=== PATIENT | male | born 1990 | race Caucasian/White ===

== ENCOUNTER 2022-03-22 16:40 | Emergency (ER) | payer MEDICARE, SELFPAY ==
[2022-03-22 17:09] VITALS: BP 177/92; PULSE 86; RESP 12; TEMP 37.4; O2SAT 98
[2022-03-22 17:32] VITALS: BP 177/92; PULSE 86; RESP 12; TEMP 37.4; O2SAT 98
--- NOTE | 2022-03-22 17:37 | XR_ITS ---
WS: [id number] Exam: XR wrist RT 2V 65368 Date/Time of Exam: 03/22/2022 6:17 PM Reason For Exam: pain There is an impacted comminuted fracture of the distal radius with significant shortening. There is m oderate dorsal angulation of the articulating surface. There is avulsion of the ulnar styloid. No dis location. Soft tissue swelling about the wrist. XR/XR wrist RT 2V [id number] IMPRESSION: 1. Impacted comminuted fracture of the distal radius with the dorsal angulation of the articulating surface. There is shortening. 2. Ulnar styloid fracture.
--- NOTE | 2022-03-22 17:37 | XRR_ITS ---
PROCEDURE INFORMATION: Exam: XR Right Hand Exam date and time: 03/22/2022 6:09 PM Age: 31 years old Clinical indication: Pain; Wrist; Right; Additional info: Fall, foosh TECHNIQUE: Imaging protocol: Radiologic exam of the Right hand. Views: 3 or more views. COMPARISON: No relevant prior studies available. FINDINGS: Bones/joints: Distal radial metaphyseal comminuted fracture with articular involvement at the radiocarpal joint with displacement by least 1/2 shaft and some impaction. Ulnar styloid process mildly displaced fracture. Soft tissues: Normal. XR/XR hand RT min 3V* [id number] IMPRESSION: 1. Distal radial metaphyseal comminuted fracture with articular involvement at the radiocarpal joint with displacement by least 1/2 shaft and some impaction. 2. Ulnar styloid process mildly displaced fracture.
--- NOTE | 2022-03-22 17:37 | XRR_ITS ---
PROCEDURE INFORMATION: Exam: XR Right Forearm Exam date and time: 03/22/2022 6:09 PM Age: 31 years old Clinical indication: Pain; Wrist; Right; Additional info: Arm pain TECHNIQUE: Imaging protocol: Radiologic exam of the Right forearm. Views: 2 views. COMPARISON: No relevant prior studies available. FINDINGS: Bones/joints: Distal radial metaphyseal comminuted fracture with suspected articular involvement at the radiocarpal joint with displacement by least 1/2 shaft and some impaction. Soft tissues: Normal. XR/XR forearm RT 2V [id number] IMPRESSION: Distal radial metaphyseal comminuted fracture with suspected articular involvement at the radiocarpal joint with displacement by least 1/2 shaft and some impaction.
--- NOTE | 2022-03-22 17:39 | W.ED.GENADLT ---
HPI - General Adult General: Chief complaint: Extremity Injury, Upper Stated complaint: right arm injury Time Seen by Provider: 03/22/22 17:32 History of Present Illness: Patient is a 31-year-old male with a history of morbid obesity who presents emergency room for evaluation of right forearm and wrist pain. Patient was going up a ladder and was 2 feet above the ground when he fell and had a FOOSH injury to his right hand. Patient complains of right wrist and forearm pain. Patient denies LOC, or head injury or other source of injuries at this time. Patient denies any associated chest pain, shortness breath, palpitation prior to the episode of fall. No other source of injuries or trauma. Onset: 1 hr ago Duration:1 hr Location:home Severity:moderate Associated symptoms: Deny chest pain, dyspnea, nausea, rash, palpitations or vomiting Review of Systems Const: Denies: fever(s) or chills Eyes: Denies: change in vision ENMT: Denies: mouth pain Card: Denies: chest pain or palpitations Resp: Denies: dyspnea or non-productive cough GI: Denies: abdominal pain, nausea, vomiting or diarrhea : Denies: dysuria Musc: Reports: extremity pain (+R arm pain) Skin/Breast: Denies: rash or new lesions Neuro: Denies: weakness in extremities Psych: Reports: other (Normal mood) Rod/Lymph: Denies: easy bruising PFSH ED PFSH: Medical History No pertinent past medical history Social History Smoking and tobacco status: never smoked Alcohol intake: never Substance/Drug Use: never Physical Exam Const: COMMON NORMALS: alert HENMT: COMMON NORMALS: atraumatic HEAD & SCALP: atraumatic MOUTH: moist mucous membranes not abnormal Eye: COMMON NORMALS: EOMs intact bilaterally and conjunctivae normal CONJUNCTIVA: Yes conjunctivae normal Neck/C-Spine: COMMON NORMALS: full ROM and supple Resp: COMMON NORMALS: normal respiratory effort and clear to auscultation bilaterally AUSCULTATION: clear to auscultation bilaterally Cardio: COMMON NORMALS: regular rate RATE: regular rate GI: COMMON NORMALS: Soft to palpation and non-tender PALPATION: Yes Soft to palpation Extremity: COMMON NORMALS: full ROM OTHER: +R distal forearm tenderness to palpation, right wrist tenderness to palpation 2+ radial pulses on the right hand, capillary less than 3 seconds in the digits on the right hand, sensation tact in radial/ulnar/median distribution of right hand, patient is able to perform okay, thumbs up, fist, and okay sign without any issues. Neuro: SENSORIUM/ORIENTATION: Yes alert MOTOR EXAM: No Abnormal motor strength present and Other motor observations present (no focal motor deficits) Psych: COMMON NORMALS: speech normal SPEECH: Yes normal speech MOOD & AFFECT: Yes euthymic mood Course Vital Signs: Vital signs: Vital Signs Temperature 99.3 F 03/22/22 19:33 Pulse Rate 86 03/22/22 19:33 Respiratory Rate 12 03/22/22 19:33 Blood Pressure 177/92 03/22/22 19:33 Pulse Oximetry 98 03/22/22 19:33 MDM - General Adult Medical Decision Making 31-year-old male without any significant past medical history presented to the emergency room for fall from ladder. Patient complains of right forearm and wrist pain. On exam, patient is neurovascular intact in the right upper extremity. Patient distal right forearm and wrist tenderness to palpation. He received IM morphine, and Toradol with improvement in pain. X-ray showed commuinted radial head fx with articular involvement and ulnar styloid fx. I discussed the x-rays with Dr. Naidu who recommended sugar-tong and close follow-up in clinic tomorrow morning. He is placed in a sugar-tong. I have given patient follow up with our correctional casework specialist to be seen by our outpatient Orthopedics tomorrow. Patient aware of a call from our correctional casework specialist to schedule for appointment(s) and verbalizes understanding of the importance of following up. Rx percocet PRN pain Disposition: Discharge. Patient counseled regarding diagnostic impression, treatment plan. Patient given ED strict return precautions to return for continuation, worsening, or development of new symptoms. Instructed to f/u w/ Dr. aNidu regarding symptoms today. Patient verbalized understanding. Lab Data Radiology Impressions Forearm X-Ray 03/22/22 17:37 IMPRESSION: Distal radial metaphyseal comminuted fracture with suspected articular involvement at the radiocarpal joint with displacement by least 1/2 shaft and some impaction. Hand X-Ray 03/22/22 17:37 IMPRESSION: 1. Distal radial metaphyseal comminuted fracture with articular involvement at the radiocarpal joint with displacement by least 1/2 shaft and some impaction. 2. Ulnar styloid process mildly displaced fracture. Imaging Data Other Imaging: Radiologist's impression: [facility] [facility] [address] [place] [id number] XRay Report Signed Patient: Derik De Leon Unit #: [id number] : 1990 Age/Sex: 31 / M ADM Date: 03/22/22 Loc: ER Room/Bed: Attending Dr: Ordering Provider/Ordering MD: Tr Pfeiffer MD Date of Service: 03/22/22 Procedure(s): XR hand RT min 3V* [id number] Accession Number(s): [id number] Report Number: [id number] PROCEDURE INFORMATION: Exam: XR Right Hand Exam date and time: 03/22/2022 6:09 PM Age: 31 years old Clinical indication: Pain; Wrist; Right; Additional info: Fall, foosh TECHNIQUE: Imaging protocol: Radiologic exam of the Right hand. Views: 3 or more views. COMPARISON: No relevant prior studies available. FINDINGS: Bones/joints: Distal radial metaphyseal comminuted fracture with articular involvement at the radiocarpal joint with displacement by least 1/2 shaft and some impaction. Ulnar styloid process mildly displaced fracture. Soft tissues: Normal. XR/XR hand RT min 3V* [id number] IMPRESSION: 1. Distal radial metaphyseal comminuted fracture with articular involvement at the radiocarpal joint with displacement by least 1/2 shaft and some impaction. 2. Ulnar styloid process mildly displaced fracture. ? Dictated By: Raj Castro MD Signed By: Raj Castro MD Signed Date/Time: 03/22/222013 DD/ 1809 [facility] [address] [place] [id number] XRay Report Signed Patient: Derik De Leon Unit #: [id number] : 1990 Age/Sex: 31 / M ADM Date: 03/22/22 Loc: ER Room/Bed: Attending Dr: Ordering Provider/Ordering MD: Tr Pfeiffer MD Date of Service: 03/22/22 Procedure(s): XR forearm RT 2V 29896 Accession Number(s): [id number] Report Number: [id number] PROCEDURE INFORMATION: Exam: XR Right Forearm Exam date and time: 03/22/2022 6:09 PM Age: 31 years old Clinical indication: Pain; Wrist; Right; Additional info: Arm pain TECHNIQUE: Imaging protocol: Radiologic exam of the Right forearm. Views: 2 views. COMPARISON: No relevant prior studies available. FINDINGS: Bones/joints: Distal radial metaphyseal comminuted fracture with suspected articular involvement at the radiocarpal joint with displacement by least 1/2 shaft and some impaction. Soft tissues: Normal. XR/XR forearm RT 2V 22607 IMPRESSION: Distal radial metaphyseal comminuted fracture with suspected articular involvement at the radiocarpal joint with displacement by least 1/2 shaft and some impaction. ? Dictated By: Raj Castro MD Signed By: Raj Castro MD Signed Date/Time: 03/22/222012 DD/ 08 Discharge Plan Discharge Patient Disposition: Home Clinical Impression: Arm pain, Pain in wrist Prescriptions: New Percocet 5-325 mg tablet 1 tab PO Q8H PRN (Reason: pain) Qty: 9 0RF No Action citalopram 10 mg tablet 10 mg PO DAILY 0RF methylphenidate HCl 10 mg tablet 10 mg PO TID 0RF clindamycin phosphate 1 % gel 1 applic TOPICAL DAILY 0RF clotrimazole 1 % cream 1 applic TOPICAL DAILY 0RF risperidone 1 mg tablet 1 mg PO BID 0RF Discharge Orders: Discharge ED (Routine); Ordered 03/22/22 Ordered By: Tr Pfeiffer Discharge Diet: Advance as tolerated Discharge Activity: Increase activity as tolerated Patient Instructions: Arm Fracture in Adults (ED) Activity Restrictions/Additional Instructions: Our correctional casework specialist will have you follow-up with Dr. Naidu's office tomorrow. Please call [phone]. You would be expected to have a phone call with our correctional casework specialist who will put you on the schedule. You can expect a call from us in the next 2-3 days. If you don't hear from us, call us back in the emergency room at [phone]. Please take off the splint if you have any significant numbness, pain, coldness in the hands, or any new concerning complaints Coding Level of Care Code ED Protector Plate Attacher for Bernadette Espino Exam Comprehensive
[2022-03-22] MEDS: acetaminophen 500 mg Tablet PO (17:54)
[2022-03-22] MEDS: morphine 4 mg/mL SDV 1 mL IM (17:55)
[2022-03-22 19:33] VITALS: BP 177/92; PULSE 86; RESP 12; TEMP 37.4; O2SAT 98
--- NOTE | 2022-03-23 09:34 | PC.SOCIAL ---
Addendum entered by Shalini Espinoza 04/14/22 16:35: Appointment was scheduled for patient - appointment cancelled Original Note: Elysia Follow-Up Attempted to reach Dr. Naidu's office by phone to schedule appointment; unable to get through. Message sent requesting follow up appointment. Clinic will call patient with appointment.
== END 2022-03-22 19:36 | disposition home or self-care (01) ==
PROVIDERS: Emergency Provider Emergency Medicine
DX: M79.631 Pain in right forearm (principal); M25.531 Pain in right wrist
CPT/HCPCS: 29125; 73090; 73100; 73130; 96372; 99283; J2270